=== PATIENT | male | born 1960 | race Hispanic/Latino ===

== ENCOUNTER 2022-08-21 07:03 | Day surgery (SDC) | payer OTHER, MEDICAID ==
[2022-08-21 08:45] VITALS: BMI 25.4
[2022-08-21] MEDS ORDERED: PROPOFOL 40 ML ONE (09:17)
[2022-08-21] MEDS ORDERED: PROPOFOL 20 ML ONE ×2 (10:12)
[2022-08-21] MEDS ORDERED: PHENYLEPHRINE-NS 100 MCG/ML 10 ML SYRINGE ONE ×2 (10:19)
[2022-08-21] MEDS ORDERED: Racepinephrine 2.25% 0.5 ML NEB ONE (10:57)
[2022-08-21] MEDS ORDERED: Sodium Chloride For Inhalation 0.9% 3 ML NEB ONE (10:58)
== END 2022-08-21 11:54 | disposition home or self-care (01) ==
LOC: CSHSDC 07:03
PROVIDERS: ATTEND Internal Medicine Gastroenterology
PROC: 0DJD8ZZ Inspection of Lower Intestinal Tract, Via Natural or Artificial Opening Endoscopic (ICD-10-PCS; principal; 2022-08-21)
PROC: 0D758ZZ Dilation of Esophagus, Via Natural or Artificial Opening Endoscopic (ICD-10-PCS; 2022-08-21)
DX: Z12.11 Encounter for screening for malignant neoplasm of colon (principal); K57.30 Diverticulosis of large intestine without perforation or abscess without bleeding; K21.9 Gastro-esophageal reflux disease without esophagitis; K44.9 Diaphragmatic hernia without obstruction or gangrene; J44.9 Chronic obstructive pulmonary disease, unspecified; F17.200 Nicotine dependence, unspecified, uncomplicated; I10 Essential (primary) hypertension; I25.10 Atherosclerotic heart disease of native coronary artery without angina pectoris; E78.00 Pure hypercholesterolemia, unspecified; G47.30 Sleep apnea, unspecified; M19.90 Unspecified osteoarthritis, unspecified site; Z91.040 Latex allergy status; Z86.010 Personal history of colon polyps; Z80.0 Family history of malignant neoplasm of digestive organs; Z79.899 Other long term (current) drug therapy
CPT/HCPCS: J2704